=== PATIENT | female | born 1985 | race Caucasian/White ===

== ENCOUNTER 2018-07-24 09:00 | Outpatient (RCR) | payer OTHER, SELFPAY ==
--- NOTE | 2018-07-18 15:01 | PT.OIE ---
Current Diagnoses Carpal tunnel syndrome, unspecified upper limb (07/17/18) Past Medical History (Last Reviewed 07/03/18 @ 12:35 by Danielle Humphries MD) History of pre-eclampsia (Acute) Spontaneous vaginal delivery (Acute) Provider Visit Care Team Role Provider Type Danielle Humphries MD Attending Provider Physician Primary Care Provider Specialty: [facility] Address: [address] [place] [address] Email: [email or web address] Physical Therapy Initial Evaluation PT-OP-A Visit Information Start: 07/17/18 13:42 Freq: Status: Active Protocol: Document 07/17/18 17:00 EA (Rec: 07/18/18 08:09 EA [id number]) Out-Patient Physical Therapy Visit Information Visit Information Visit Type Initial Evaluation Visit Start Time 13:00 Visit Stop Time 13:45 Total Visit Minutes 35 Visit Number 1 Evaluation Information Evaluation Date 07/17/18 PT-OP-B Current Condition Start: 07/17/18 13:42 Freq: Status: Active Protocol: Document 07/17/18 17:00 EA (Rec: 07/18/18 08:09 EA [id number]) Current Condition History of Current Condition Onset Date 3 months ago Current Complaints Pain with abnormal sensation to mid anterior FRA, thumb, index, mid finger History of Current Condition Present condition started 1-2 months ago when patient started breast feeding to her which is now 3 months old; 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 Patient described the symptoms as constant achy pain with tingling/numbness from both mid anterior FRA, wrist, thumb, index, and middle finger. Pt denies history of neck, shoulder, elbow injury. Patient reports symptoms began to diminished slowly after few chiropractor adjustment which her chiropractor believes there is involvement on the neck region, and using OTC wrist brace. Patient denies any loss of hand function or incident that she lost sketch artist to both hands, however states abnormal sensory is constant and more during time. Prior Treatments and Tests Ongoing chiropractor Future Testing and Treatments Planned Ongoing chiropractor Treatment Goals Patient/Caregiver Goals Patient wants to completely eliminate hands sensory alteration and pain Prior Functional Status Baseline Function- ADL's Independent Baseline Function- Mobility Independent Baseline Function- Gait indep Baseline Function- Work/School Indep without limitation prior to maternity leave Current Functional Impairments (Reported) Functional Limitations- ADL's Limited with hand gripped activities and difficulty with infant Functional Limitations- Mobility/Gait Indep Functional Limitations- Work/School Just back to work but with limitation to hand gripping activities PT-OP-C Subjective Start: 07/17/18 13:42 Freq: Status: Active Protocol: Document 07/17/18 17:00 EA (Rec: 07/18/18 08:09 EA [id number]) OP-PT Subjective Patient Comments Patient Reported Progress Improving PT-OP-E Functional Tests Start: 07/17/18 13:42 Freq: Status: Active Protocol: Document 07/17/18 17:00 EA (Rec: 07/18/18 08:09 EA [id number]) Functional Tests Other 1 Name of Test Hand dynamometer Score R =25: Left =22 Comment Normal range: R33.8 ; Left 28. 5 : 25% deficits PT-OP-H Neuro Start: 07/17/18 13:42 Freq: Status: Active Protocol: Document 07/17/18 17:00 EA (Rec: 07/18/18 08:09 EA [id number]) Sensation Evaluation Gross Sensation Gross Sensation Left UE Impaired Right UE Impaired Sensation Description [place] Location Details Left Anterior Lateral Hand Light Touch Impaired Sharp/Dull Impaired Hot/Cold Impaired Proprioception (Position) Intact/Normal Kinesthesia (Movement) Intact/Normal Two-Point Discrimination Impaired Tactile Localization Intact/Normal Stereognosis Intact/Normal Graphesthesia Intact/Normal Right Anterior Lateral Hand Light Touch Impaired Sharp/Dull Impaired Hot/Cold Impaired Proprioception (Position) Intact/Normal Kinesthesia (Movement) Intact/Normal Two-Point Discrimination Impaired Tactile Localization Intact/Normal Stereognosis Intact/Normal Graphesthesia Intact/Normal Deep Tendon Reflex & Clonus Assessment Deep Tendon Reflex Bilateral Bicep Deep Tendon Reflex 2+ Normal Bilateral Brachioradialis Deep Tendon Reflex 2+ Normal PT-OP-J Posture/Palpation/Skin Start: 07/17/18 13:42 Freq: Status: Active Protocol: Document 07/17/18 17:00 EA (Rec: 07/18/18 08:09 EA [id number]) Posture Evaluation Position Standing Evaluation View post/lat Head/C-Spine Posture Forward Head Shoulder Posture (L) Rounded (R) Rounded Palpation Assessment Location Two Palpation Location Both midFRA, both pronators and wrist flexors Palpation Findings Soft Tissue Tightness Tenderness One Palpation Location Both traps, scalenes, SCM, Palpation Findings Soft Tissue Tightness Tenderness PT-OP-K Range of Motion Start: 07/17/18 13:42 Freq: Status: Active Protocol: Document 07/17/18 17:00 EA (Rec: 07/18/18 08:09 EA [id number]) Elbow/Forearm Range of Motion Elbow/Forearm Measured in Degrees Right Passive Elbow/Forearm ROM WFL Yes Left Active Elbow/Forearm ROM WFL Yes Wrist Goniometric Range of Motion Wrist Measured in Degrees Right Wrist ROM WFL Yes Left Wrist ROM WFL Yes PT-OP-L Special Tests Start: 07/17/18 13:42 Freq: Status: Active Protocol: Document 07/17/18 17:00 EA (Rec: 07/18/18 08:12 EA [id number]) Special Tests Other Special Tests Special Tests Phalens and reverse phalen's test: Negative Pronator Teres test: high sensitive PT-OP-M Strength Start: 07/17/18 13:42 Freq: Status: Active Protocol: Document 07/17/18 17:00 EA (Rec: 07/18/18 08:09 EA [id number]) Wrist Strength Wrist Manual Muscle Testing Right Flexion (C7) 4+ Good+ Extension (C6) 5 Normal Ulnar Deviation 4+ Good+ Radial Deviation 5 Normal Left Flexion (C7) 4+ Good+ Extension (C6) 5 Normal Ulnar Deviation 4+ Good+ Radial Deviation 5 Normal Finger/Thumb Strength Finger Manual Muscle Testing Right Thumb Flexion (fingers C8) 4 Good Extension (thumb C8) 5 Normal Adduction 5 Normal Abduction (fingers T1) 5 Normal Left Thumb Flexion (fingers C8) 4 Good Extension (thumb C8) 5 Normal Adduction 5 Normal Abduction (fingers T1) 5 Normal PT-OP-Q Treatments Start: 07/17/18 13:42 Freq: Status: Active Protocol: Document 07/17/18 17:00 EA (Rec: 07/18/18 14:58 EA [id number]) Self-Care/Home Management Treatment Education Patient Education Home Exercise Program Pain Management PT-OP-T Assessment and Plan Start: 07/17/18 13:42 Freq: Status: Active Protocol: Document 07/17/18 17:00 DEE DEE (Rec: 07/18/18 08:09 DEE DEE [id number]) Physical Therapy Assessment Rehab Potential Rehabilitation Potential Excellent Evaluation Complexity Number of Personal Factors/Comorbidities 0 Number of Body Systems Impaired 1-2 Clinical Presentation at Evaluation Stable Impairments Impairments Pain Sensation Soft Tissue Mobility Strength Goals Four Impairment Grade 2 tenderness to both prox ant 1/3 of the FRA Telecasting Technician Goal (LTG) Patient will breastfeed her baby without tenderness or increase symptoms to both anterior FRA. LTG Duration 4 wks Three Impairment Impaired sensory Shelter Goal (LTG) Patient will eliminate abnormal sensory to both distal 3rd FRA, anterior thumb ,index, middle finger to improve quality of life. LTG Duration 4 wks Two Impairment No home exercises in place Shelter Goal (LTG) Patient will perform and comply to HEP safely. LTG Duration 2 wks One Impairment Impaired both hand sketch artist strength Shelter Goal (LTG) Patient will exhibit handgrip strength normal to her age (35 .8 R; 28.5 L) to perform hand tasks without difficulty. LTG Duration 4 wks Assessment Summary Assessment Pleasant 32 y/o F patient referred to PT with current diagnosis of bilateral carpal tunnel syndrome. Today patient exhibited with decreased hand sketch artist strength with constant tingling/numbness to both distal 3rd of anterior FRA, anterior thumb, index, and middle finger. Special tests reveals sensitive to pronator teres syndrome tests;negative to phalen's and reversed phalen's test. Tenderness and tightness noted to both pronators teres. Tests and patient history is consistent to an impression of bilateral entrapment to pronator teres. Due to above bodily dysfunction, patient is limited to handgrip activities . Patient would benefit with skilled PT to reach functional goals and enhance quality of life. Physical Therapy Plan Frequency and Duration Frequency of Treatment 2x/Week Duration of Treatment 8 wks Plan of Care Start Date 07/17/18 Plan of Care End Date 09/11/18 Therapeutic Interventions Therapeutic Interventions Home Exercise Program Manual Therapy Patient/Caregiver Education Self-Care/Home Management Soft Tissue Mobilization Taping Therapeutic Exercises Modalities Cold Pack/Ice Massage Electric Stimulation Hot Packs Paraffin Bath Ultrasound Next Visit Focus/Plan Next Note Type Treatment Note Next Visit Plan HEP
--- NOTE | 2018-07-18 15:03 | PT.OPPOC ---
Current Diagnoses Carpal tunnel syndrome, unspecified upper limb (07/17/18) Provider Visit Care Team Role Provider Type Danielle Humphries MD Attending Provider Physician Primary Care Provider Specialty: [facility] Address: [address] [place] [address], [facility] Email: [email or web address] Plan Of Care PT-OP-T Assessment and Plan Start: 07/17/18 13:42 Freq: Status: Active Protocol: Document 07/17/18 17:00 EA (Rec: 07/18/18 08:09 EA [id number]) Physical Therapy Assessment Rehab Potential Rehabilitation Potential Excellent Evaluation Complexity Number of Personal Factors/Comorbidities 0 Number of Body Systems Impaired 1-2 Clinical Presentation at Evaluation Stable Impairments Impairments Pain Sensation Soft Tissue Mobility Strength Goals Four Impairment Grade 2 tenderness to both prox ant 1/3 of the FRA Senior Care Goal (LTG) Patient will breast feed her baby without tenderness or increase symptoms to both anterior FRA. LTG Duration 4 wks Three Impairment Impaired sensory Senior Care Goal (LTG) Patient will eliminate abnormal sensory to both distal 3rd FRA, anterior thumb ,index, middle finger to improve quality of life. LTG Duration 4 wks Two Impairment No home exercises in place Parcel Contractor Goal (LTG) Patient will perform and comply to HEP safely. LTG Duration 2 wks One Impairment Impaired both hand finishing inspector strength Parcel Contractor Goal (LTG) Patient will exhibit handgrip strength normal to her age (35 .8 R; 28.5 L) to perform hand tasks without difficulty. LTG Duration 4 wks Assessment Summary Assessment Pleasant 32 y/o F patient referred to PT with current diagnosis of bilateral carpal tunnel syndrome. Today patient exhibited with decreased hand finishing inspector strength with constant tingling/numbness to both distal 3rd of anterior FRA, anterior thumb, index, and middle finger. Special tests reveals sensitive to pronator teres syndrome tests;negative to Phalen's and reversed Phalen's test. Tenderness and tightness noted to both pronators teres. Tests and patient history is consistent to an impression of bilateral entrapment to pronator teres. Due to above bodily dysfunction, patient is limited to handgrip activities . Patient would benefit with skilled PT to reach functional goals and enhance quality of life. Physical Therapy Plan Frequency and Duration Frequency of Treatment 2x/Week Duration of Treatment 8 wks Plan of Care Start Date 07/17/18 Plan of Care End Date 09/11/18 Therapeutic Interventions Therapeutic Interventions Home Exercise Program Manual Therapy Patient/Caregiver Education Self-Care/Home Management Soft Tissue Mobilization Taping Therapeutic Exercises Modalities Cold Pack/Ice Massage Electric Stimulation Hot Packs Paraffin Bath Ultrasound Next Visit Focus/Plan Next Note Type Treatment Note Next Visit Plan HEP Plan of Care Dates Plan of Care Start Date 07/17/18 Plan of Care End Date 09/11/18 Please Sign and Return: I have reviewed this Plan of Care and certify that the skilled therapy services above are required to meet the patient?s needs. Physician Signature Date Printed Name and Credentials Clinical Instructor Signature Printed Name and Credentials
--- NOTE | 2018-07-24 09:49 | PT.OTN ---
Current Diagnoses Carpal tunnel syndrome, unspecified upper limb (07/24/18) Physical Therapy Treatment Note PT-OP-A Visit Information Start: 07/17/18 13:42 Freq: Status: Active Protocol: Document 07/24/18 09:12 EA (Rec: 07/24/18 09:47 EA [id number]) Out-Patient Physical Therapy Visit Information Visit Information Visit Type Treatment Note Visit Start Time 09:00 Visit Stop Time 09:55 Total Visit Minutes 55 Visit Number 2 PT-OP-B Current Condition Start: 07/17/18 13:42 Freq: Status: Active Protocol: Document 07/17/18 17:00 EA (Rec: 07/18/18 08:09 EA [id number]) Current Condition History of Current Condition Onset Date 3 months ago Current Complaints Pain with abnormal sensation to midanterior FRA, thumb, index, mid finger History of Current Condition Present condition started 1-2 months ago when patient started breasfeeding to her which is now 3 months old; 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 Patient decribed the symtoms as constant achy pain with tingling/numbness from both mid anterior FRA, wrist, thumb, index, and middle finger. Pt denies history of neck, shoulder, elbow injury. Patient reports symptoms began to diminished slowly after few chiropractor adjusment which her chiropractor believes there is involvement on the neck region, and using OTC wrist brace. Patient denies any loss of hand function or incendent that she lost group underwriter to both hands, however states abnormal sensory is constant and more during time. Prior Treatments and Tests Ongoing chiropractor Future Testing and Treatments Planned Ongoing chiropractor Treatment Goals Patient/Caregiver Goals Patient wants to completely eliminate hands sensory alteration and pain Prior Functional Status Baseline Function- ADL's Independent Baseline Function- Mobility Independent Baseline Function- Gait indep Baseline Function- Work/School Indep without limitation prior to maternity leave Current Functional Impairments (Reported) Functional Limitations- ADL's Limited with hand gripped activities and difficulty with infant Functional Limitations- Mobility/Gait Indep Functional Limitations- Work/School Just back to work but with limitation to hand gripping activities PT-OP-C Subjective Start: 07/17/18 13:42 Freq: Status: Active Protocol: Document 07/24/18 09:12 EA (Rec: 07/24/18 09:47 EA [id number]) OP-PT Subjective Patient Comments Patient Comments Pt reports symptoms is plateau at this time; not getting worst and not getting better,. PT-OP-E Functional Tests Start: 07/17/18 13:42 Freq: Status: Active Protocol: Document 07/17/18 17:00 EA (Rec: 07/18/18 08:09 EA [id number]) Functional Tests Other 1 Name of Test Hand dynamometer Score R =25: Left =22 Comment Normal range: R33.8 ; Left 28. 5 : 25% deficits PT-OP-H Neuro Start: 07/17/18 13:42 Freq: Status: Active Protocol: Document 07/17/18 17:00 EA (Rec: 07/18/18 08:09 EA [id number]) Sensation Evaluation Gross Sensation Gross Sensation Left UE Impaired Right UE Impaired Sensation Description [place] Location Details Left Anterior Lateral Hand Light Touch Impaired Sharp/Dull Impaired Hot/Cold Impaired Proprioception (Position) Intact/Normal Kinesthesia (Movement) Intact/Normal Two-Point Discrimination Impaired Tactile Localization Intact/Normal Stereognosis Intact/Normal Graphesthesia Intact/Normal Right Anterior Lateral Hand Light Touch Impaired Sharp/Dull Impaired Hot/Cold Impaired Proprioception (Position) Intact/Normal Kinesthesia (Movement) Intact/Normal Two-Point Discrimination Impaired Tactile Localization Intact/Normal Stereognosis Intact/Normal Graphesthesia Intact/Normal Deep Tendon Reflex & Clonus Assessment Deep Tendon Reflex Bilateral Bicep Deep Tendon Reflex 2+ Normal Bilateral Brachioradialis Deep Tendon Reflex 2+ Normal PT-OP-J Posture/Palpation/Skin Start: 07/17/18 13:42 Freq: Status: Active Protocol: Document 07/17/18 17:00 EA (Rec: 07/18/18 08:09 EA [id number]) Posture Evaluation Position Standing Evaluation View post/lat Head/C-Spine Posture Forward Head Shoulder Posture (L) Rounded (R) Rounded Palpation Assessment Location Two Palpation Location Both midFRA, both pronators and wrist flexors Palpation Findings Soft Tissue Tightness Tenderness One Palpation Location Both traps, scalenes, SCM, Palpation Findings Soft Tissue Tightness Tenderness PT-OP-K Range of Motion Start: 07/17/18 13:42 Freq: Status: Active Protocol: Document 07/17/18 17:00 EA (Rec: 07/18/18 08:09 EA [id number]) Elbow/Forearm Range of Motion Elbow/Forearm Measured in Degrees Right Passive Elbow/Forearm ROM WFL Yes Left Active Elbow/Forearm ROM WFL Yes Wrist Goniometric Range of Motion Wrist Measured in Degrees Right Wrist ROM WFL Yes Left Wrist ROM WFL Yes PT-OP-L Special Tests Start: 07/17/18 13:42 Freq: Status: Active Protocol: Document 07/17/18 17:00 EA (Rec: 07/18/18 08:12 EA [id number]) Special Tests Other Special Tests Special Tests Phalens and reverse phalen's test: Negative Pronator Teres test: high sensitive PT-OP-M Strength Start: 07/17/18 13:42 Freq: Status: Active Protocol: Document 07/17/18 17:00 EA (Rec: 07/18/18 08:09 EA [id number]) Wrist Strength Wrist Manual Muscle Testing Right Flexion (C7) 4+ Good+ Extension (C6) 5 Normal Ulnar Deviation 4+ Good+ Radial Deviation 5 Normal Left Flexion (C7) 4+ Good+ Extension (C6) 5 Normal Ulnar Deviation 4+ Good+ Radial Deviation 5 Normal Finger/Thumb Strength Finger Manual Muscle Testing Right Thumb Flexion (fingers C8) 4 Good Extension (thumb C8) 5 Normal Adduction 5 Normal Abduction (fingers T1) 5 Normal Left Thumb Flexion (fingers C8) 4 Good Extension (thumb C8) 5 Normal Adduction 5 Normal Abduction (fingers T1) 5 Normal PT-OP-Q Treatments Start: 07/17/18 13:42 Freq: Status: Active Protocol: Document 07/24/18 09:12 EA (Rec: 07/24/18 09:47 EA [id number]) Therapeutic Exercises Sitting Exercises 1 Sitting Exercise Name Both FRA pronators, both wrist flexors, extnsors gentle passive stretch Side bilateral Reps/Minutes x 15 SH x 5 reps Manual Therapy Treatment Soft Tissue Mobilization 1 Body Location Both FRA anterior muscle ( superficial/deep layers) Mobilization Type Myofascial Release Rolling Sustained Pressure Body Position Sitting Comments Begin with effleurage Nerve Glides 1 Nerve both Median and ulnar nerve Body Position Sitting Reps/Duration x 10 reps PT-OP-R Modalities Start: 07/17/18 13:42 Freq: Status: Active Protocol: Document 07/24/18 09:12 EA (Rec: 07/24/18 09:47 EA [id number]) Hot Pack/Cold Pack Treatment Hot Pack Location both FRA Patient Position Sitting Treatment Duration (minutes) 10 Patient Tolerance Good Paraffin Bath Treatment Right Hand Treatment Technique Glove Number Wax Layers (layers) 6 Duration (minutes) 15 Patient Tolerance Good Left Hand Treatment Technique Glove Number Wax Layers (layers) 6 Duration (minutes) 15 Patient Tolerance Good PT-OP-T Assessment and Plan Start: 07/17/18 13:42 Freq: Status: Active Protocol: Document 07/24/18 09:12 DEE DEE (Rec: 07/24/18 09:47 EA [id number]) Physical Therapy Assessment Assessment Summary Assessment Tolerated treatment well. Quick assessment performed to TOS and reveals positive to both arms; numbness increases after nerve glide to ulnar and median nerve. continue with current plan. Physical Therapy Plan Next Visit Focus/Plan Next Note Type Treatment Note Next Visit Plan Provide HEP
--- NOTE | 2018-10-23 13:39 | PT.OPDS ---
Current Diagnoses Carpal tunnel syndrome, unspecified upper limb (07/24/18) Provider Visit Care Team Role Provider Type Danielle Humphries MD Attending Provider Physician Primary Care Provider Specialty: Family Practice Address: [address] [place] [address], [facility] Email: [email or web address] Visit Number Visit Number 2 Discharge Summary PT-OP-B Current Condition Start: 07/17/18 13:42 Freq: Status: Active Protocol: Document 07/17/18 17:00 EA (Rec: 07/18/18 08:09 EA [id number]) Current Condition History of Current Condition Onset Date 3 months ago Current Complaints Pain with abnormal sensation to midanterior FRA, thumb, index, mid finger History of Current Condition Present condition started 1-2 months ago when patient started breasfeeding to her which is now 3 months old; 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 Patient decribed the symtoms as constant achy pain with tingling/numbness from both mid anterior FRA, wrist, thumb, index, and middle finger. Pt denies history of neck, shoulder, elbow injury. Patient reports symptoms began to diminished slowly after few chiropractor adjusment which her chiropractor believes there is involvement on the neck region, and using OTC wrist brace. Patient denies any loss of hand function or incendent that she lost sweeping compound blender to both hands, however states abnormal sensory is constant and more during time. Prior Treatments and Tests Ongoing chiropractor Future Testing and Treatments Planned Ongoing chiropractor Treatment Goals Patient/Caregiver Goals Patient wants to completely eliminate hands sensory alteration and pain Prior Functional Status Baseline Function- ADL's Independent Baseline Function- Mobility Independent Baseline Function- Gait indep Baseline Function- Work/School Indep without limitation prior to maternity leave Current Functional Impairments (Reported) Functional Limitations- ADL's Limited with hand gripped activities and difficulty with infant Functional Limitations- Mobility/Gait Indep Functional Limitations- Work/School Just back to work but with limitation to hand gripping activities PT-OP-C Subjective Start: 07/17/18 13:42 Freq: Status: Active Protocol: Document 10/23/18 13:37 EA (Rec: 02/05/19 13:39 EA [id number]) OP-PT Subjective Patient Comments Patient Comments By phone conversation today, patient reports that her condition is much improve since coming to chiropractor; states she is okay to discharge from PT. Patient Reported Progress Improving PT-OP-E Functional Tests Start: 07/17/18 13:42 Freq: Status: Active Protocol: Document 07/17/18 17:00 EA (Rec: 07/18/18 08:09 EA [id number]) Functional Tests Other 1 Name of Test Hand dynamometer Score R =25: Left =22 Comment Normal range: R33.8 ; Left 28. 5 : 25% deficits PT-OP-H Neuro Start: 07/17/18 13:42 Freq: Status: Active Protocol: Document 07/17/18 17:00 EA (Rec: 07/18/18 08:09 EA [id number]) Sensation Evaluation Gross Sensation Gross Sensation Left UE Impaired Right UE Impaired Sensation Description [place] & [place] Location Details Left Anterior Lateral Hand Light Touch Impaired Sharp/Dull Impaired Hot/Cold Impaired Proprioception (Position) Intact/Normal Kinesthesia (Movement) Intact/Normal Two-Point Discrimination Impaired Tactile Localization Intact/Normal Stereognosis Intact/Normal Graphesthesia Intact/Normal Right Anterior Lateral Hand Light Touch Impaired Sharp/Dull Impaired Hot/Cold Impaired Proprioception (Position) Intact/Normal Kinesthesia (Movement) Intact/Normal Two-Point Discrimination Impaired Tactile Localization Intact/Normal Stereognosis Intact/Normal Graphesthesia Intact/Normal Deep Tendon Reflex & Clonus Assessment Deep Tendon Reflex Bilateral Bicep Deep Tendon Reflex 2+ Normal Bilateral Brachioradialis Deep Tendon Reflex 2+ Normal PT-OP-J Posture/Palpation/Skin Start: 07/17/18 13:42 Freq: Status: Active Protocol: Document 07/17/18 17:00 EA (Rec: 07/18/18 08:09 EA [id number]) Posture Evaluation Position Standing Evaluation View post/lat Head/C-Spine Posture Forward Head Shoulder Posture (L) Rounded (R) Rounded Palpation Assessment Location Two Palpation Location Both midFRA, both pronators and wrist flexors Palpation Findings Soft Tissue Tightness Tenderness One Palpation Location Both traps, scalenes, SCM, Palpation Findings Soft Tissue Tightness Tenderness PT-OP-K Range of Motion Start: 07/17/18 13:42 Freq: Status: Active Protocol: Document 07/17/18 17:00 EA (Rec: 07/18/18 08:09 EA [id number]) Elbow/Forearm Range of Motion Elbow/Forearm Measured in Degrees Right Passive Elbow/Forearm ROM WFL Yes Left Active Elbow/Forearm ROM WFL Yes Wrist Goniometric Range of Motion Wrist Measured in Degrees Right Wrist ROM WFL Yes Left Wrist ROM WFL Yes PT-OP-L Special Tests Start: 07/17/18 13:42 Freq: Status: Active Protocol: Document 07/17/18 17:00 EA (Rec: 07/18/18 08:12 EA [id number]) Special Tests Other Special Tests Special Tests Phalens and reverse phalen's test: Negative Pronator Teres test: high sensitive PT-OP-M Strength Start: 07/17/18 13:42 Freq: Status: Active Protocol: Document 07/17/18 17:00 EA (Rec: 07/18/18 08:09 EA [id number]) Wrist Strength Wrist Manual Muscle Testing Right Flexion (C7) 4+ Good+ Extension (C6) 5 Normal Ulnar Deviation 4+ Good+ Radial Deviation 5 Normal Left Flexion (C7) 4+ Good+ Extension (C6) 5 Normal Ulnar Deviation 4+ Good+ Radial Deviation 5 Normal Finger/Thumb Strength Finger Manual Muscle Testing Right Thumb Flexion (fingers C8) 4 Good Extension (thumb C8) 5 Normal Adduction 5 Normal Abduction (fingers T1) 5 Normal Left Thumb Flexion (fingers C8) 4 Good Extension (thumb C8) 5 Normal Adduction 5 Normal Abduction (fingers T1) 5 Normal PT-OP-T Assessment and Plan Start: 07/17/18 13:42 Freq: Status: Active Protocol: Document 10/23/18 13:37 EA (Rec: 10/23/18 13:39 EA [id number]) Physical Therapy Assessment Assessment Summary Assessment Patient discharge today due to patient request. Physical Therapy Plan Discharge Physical Therapy Discharge Reasons Patient Request
== END 2018-10-23 16:26 ==
LOC: PHYS 09:00
PROVIDERS: PCP Family Medicine; Visit Provider Family Medicine
DX: G56.00 Carpal tunnel syndrome, unspecified upper limb (principal)
CPT/HCPCS: 97010; 97018; 97110; 97140; 97161; 97535

== ENCOUNTER → 2018-08-17 16:00 | Outpatient (CLI) | payer OTHER, SELFPAY | PROVIDERS: PCP Family Medicine | DX: Z23 Encounter for immunization (principal) | CPT/HCPCS: 90471; 90686 ==

== ENCOUNTER 2018-09-30 18:45 | Emergency (ER) | payer OTHER, SELFPAY ==
[2018-09-30 18:48] VITALS: BP 148/91; PULSE 81; RESP 16; TEMP 37.2; O2SAT 100
--- NOTE | 2018-09-30 19:53 | ED.URI ---
HPI - URI/Sore Throat <LEILANI Flanagan - Last Filed: 09/30/18 22:07> General Chief Complaint: Upper Respiratory Symptoms Stated Complaint: sick Time Seen by Provider: 09/30/18 19:25 Source: patient Mode of arrival: ambulatory Limitations: no limitations History of Present Illness HPI Narrative: 33-year-old female here for complaint of nasal congestion and sore throat over the past 5-6 days. She denies any fevers although she has felt some chills. Positive p.o. intake. She denies any cough. She does report that she has had some hoarseness in her voice over the past couple of days. She denies any dyspnea. She denies any other concerns or complaints this timeframe. She is ambulatory in the emergency room. No acute distress. MD Complaint: sore throat Related Data Allergies Allergy/AdvReac Type Severity Reaction Status Date / Time No Known Drug Allergies Allergy Unverified 07/03/18 11:58 Review of Systems <LEILANI Flanagan - Last Filed: 09/30/18 22:07> Constitutional Reports chills, Denies fever(s), Denies lethargy and Denies weakness Eyes Denies change in vision, Denies eye discharge, Denies irritation and Denies loss of vision ENT Ears, Nose, Mouth, and Throat: Reports nasal congestion Comments: Sore throat Cardiovascular Denies chest pain, Denies irregular heart rhythm, Denies lightheadedness, Denies palpitations, Denies dyspnea, Denies dyspnea on exertion and Denies orthopnea Respiratory Denies cough, Denies dyspnea, Denies dyspnea on exertion and Denies wheezing Gastrointestinal Gastrointestinal: Denies abdominal pain, Denies change in bowel habits, Denies diarrhea, Denies nausea and Denies vomiting Genitourinary Denies hematuria, Denies flank pain, Denies urinary incontinence and Denies urinary urgency Musculoskeletal Denies back pain, Denies muscle weakness, Denies numbness and Denies tingling Integumentary/Breasts Denies pruritus, Denies erythema, Denies rash and Denies wounds Neurologic Denies confusion, Denies loss of vision, Denies numbness, Denies tingling and Denies weakness Psychiatric Denies anxiety, Denies confusion, Denies depression, Denies homicidal ideation and Denies suicidal ideation Endocrine Denies palpitations Hematologic/Lymphatic Denies easy bruising Allergic/Immunologic Denies wheezing Exam <LEILANI Flanagan - Last Filed: 09/30/18 22:07> Initial Vital Signs Initial Vital Signs: Vital Signs Temperature 98.9 F 09/30/18 18:48 Pulse Rate 81 09/30/18 18:48 Respiratory Rate 16 09/30/18 18:48 Blood Pressure 148/91 H 09/30/18 18:48 Pulse Oximetry 100 09/30/18 18:48 Const General: cooperative and well developed Nutritional Appearance: well nourished Orientation: alert, awake, oriented x3 and not confused [facility] Mouth: oral mucosae normal, oropharynx normal and moist mucous membranes Eyes Conjunctivae: conjunctivae normal Sclera: sclerae normal Pupils: PERRL EOM: EOM intact bilaterally Chest Chest: normal inspection of the chest Resp Effort & Inspection: normal respiratory effort, able to speak in complete sentences, no respiratory distress and no use of accessory muscles Auscultation: clear to auscultation bilaterally, no rales, no rhonchi and no wheezes Cardio Rate: regular rate Rhythm: regular rhythm Heart Sounds: no click, no gallops, no murmurs and no rubs Pulses: normal peripheral pulses Skin General: no rashes or lesions noted, No jaundice and No petechiae Neuro General: alert, oriented x3, gait normal and no focal motor deficits Speech: speech normal <Juaquin Martinez DO - Last Filed: 09/30/18 22:24> Initial Vital Signs Initial Vital Signs: Vital Signs Temperature 98.9 F 09/30/18 18:48 Pulse Rate 81 09/30/18 18:48 Respiratory Rate 16 09/30/18 18:48 Blood Pressure 148/91 H 09/30/18 18:48 Pulse Oximetry 100 09/30/18 18:48 Course <LEILANI Flanagan - Last Filed: 09/30/18 22:07> Orders Ordered: Discontinued Medications Prednisone (Deltasone 20 Mg Prepack) 1 bottle MISC SEEINSTR ONE Stop: 09/30/18 20:34 Last Admin: 09/30/18 20:53 Dose: 1 bottle Vital Signs - 8 hr 09/30/18 18:48 09/30/18 20:57 Temperature 98.9 F 98.6 F Pulse Rate 81 85 Respiratory Rate 16 16 Blood Pressure 148/91 H 136/87 Pulse Oximetry 100 98 <Juaquin Martinez DO - Last Filed: 09/30/18 22:24> Orders Ordered: Discontinued Medications Prednisone (Deltasone 20 Mg Prepack) 1 bottle MISC SEEINSTR ONE Stop: 09/30/18 20:34 Last Admin: 09/30/18 20:53 Dose: 1 bottle Vital Signs - 8 hr 09/30/18 18:48 09/30/18 20:57 Temperature 98.9 F 98.6 F Pulse Rate 81 85 Respiratory Rate 16 16 Blood Pressure 148/91 H 136/87 Pulse Oximetry 100 98 MDM - URI/Sore Throat <LEILANI Flanagan - Last Filed: 09/30/18 22:07> Lab Data Point of Care Testing Rapid Strep A Negative MDM Narrative Medical decision making narrative: Rapid strep test was obtained was negative. Signs and symptoms presents as viral upper respiratory infection. She is given a few days of prednisone 20 mg to help with any inflammation to the throat plenty of fluids. [id number] Tylenol as needed for any discomfort. Follow up with primary care provider. Return emergency room for any worsening symptoms. <Juaquin Martinez DO - Last Filed: 09/30/18 22:24> Lab Data Point of Care Testing Rapid Strep A Negative Discharge Plan Departure Patient Disposition: Home Clinical Impression: Upper respiratory infection Discharge Date/Time: 09/30/18 20:58 Interventions: ED Discharge Assessment Last Done: 09/30/18 20:57 Instructions: DI for Viral Upper Respiratory Infection -- Adult Activity Restrictions/Additional Instructions: Strep test was obtained was negative. Signs symptoms presents as viral upper respiratory infection. Plenty of fluids and rest. Use [id number] Tylenol as needed for any discomfort. Short course of prednisone is given to help with inflammation to the throat area. Follow up with her primary care provider later this week. For any worsening symptoms return to the emergency room. Referrals: Danielle Humphries MD [Primary Care Provider] - <Juaquin Martinez DO - Last Filed: 09/30/18 22:24> Cosign ED Attending Cosignature Attestation: I was available for consultation during this patient's emergency department encounter
[2018-09-30] MEDS: predniSONE 20 MG PREPACK 1 BOTTLE MISC (20:53)
[2018-09-30 20:57] VITALS: BP 136/87; PULSE 85; RESP 16; TEMP 37; O2SAT 98
== END 2018-09-30 20:58 | disposition home or self-care (01) ==
PROVIDERS: Emergency Provider Nurse Practitioner Family; PCP Family Medicine
DX: J06.9 Acute upper respiratory infection, unspecified (principal)
CPT/HCPCS: 87880; 99282; 99283

== ENCOUNTER → 2018-10-01 16:10 | Outpatient (CLI) | payer OTHER, SELFPAY ==
[2018-10-01 16:39] LABS: Influenza A and B by PCR Rapid Negative (Negative)
== END ==
PROVIDERS: PCP Family Medicine; Visit Provider Registered Nurse
DX: J06.9 Acute upper respiratory infection, unspecified (principal)
CPT/HCPCS: 87400

== ENCOUNTER → 2019-06-21 17:46 | Outpatient (CLI) | payer OTHER, SELFPAY | PROVIDERS: PCP Family Medicine | DX: Z23 Encounter for immunization (principal) | CPT/HCPCS: 90471; 90686 ==

== ENCOUNTER → 2020-04-01 08:48 | Outpatient (CLI) | payer OTHER, SELFPAY ==
[2020-04-02 14:15] LABS: COVID19 Sendout Not Detected (Not Detect)
== END ==
PROVIDERS: PCP Family Medicine; Visit Provider Physician Assistant
DX: J02.9 Acute pharyngitis, unspecified (principal); R05 Cough
CPT/HCPCS: 87635

== ENCOUNTER → 2020-06-07 09:01 | Outpatient (CLI) | payer OTHER, SELFPAY ==
[2020-06-08 14:21] LABS: COVID19 Sendout Not Detected (Not Detect)
== END ==
PROVIDERS: PCP Family Medicine; Visit Provider Physician Assistant
DX: J39.2 Other diseases of pharynx (principal); R05 Cough; Z20.828 Contact with and (suspected) exposure to other viral communicable diseases
CPT/HCPCS: 87635

== ENCOUNTER → 2020-06-25 03:18 | Outpatient (CLI) | payer OTHER, SELFPAY | PROVIDERS: PCP Family Medicine; Referring Provider Internal Medicine; Visit Provider Internal Medicine | DX: Z23 Encounter for immunization (principal) | CPT/HCPCS: 90471; 90686 ==

== ENCOUNTER → 2020-07-23 08:31 | Outpatient (CLI) | payer OTHER, SELFPAY ==
[2020-07-24 07:17] LABS: COVID19 Sendout Not Detected (Not Detect)
== END ==
PROVIDERS: PCP Family Medicine; Visit Provider Physician Assistant
DX: Z11.59 Encounter for screening for other viral diseases (principal); R50.9 Fever, unspecified; J02.9 Acute pharyngitis, unspecified
CPT/HCPCS: 87070; 87077; 87147; 87635

== ENCOUNTER → 2020-08-26 10:24 | Outpatient (CLI) | payer OTHER, SELFPAY ==
[2020-08-26 11:22] LABS: COVID19 -Nasal RAPID POSITIVE (Negative)
== END ==
PROVIDERS: PCP Family Medicine; Visit Provider Physician Assistant
DX: U07.1 COVID-19 (principal)
CPT/HCPCS: 87635

== ENCOUNTER → 2020-09-25 11:00 | Outpatient (CLI) | payer OTHER, SELFPAY ==
[2020-09-25] MEDS: COVID-19 VACC(MODERNA-1)/PF 100 MCG/0.5 ML VIAL IM (11:06)
== END ==
PROVIDERS: PCP Family Medicine; Visit Provider Internal Medicine
DX: Z23 Encounter for immunization (principal)
CPT/HCPCS: 0011A; 91301

== ENCOUNTER → 2020-10-23 10:59 | Outpatient (CLI) | payer OTHER, SELFPAY ==
[2020-10-23] MEDS: COVID-19 VACC #2, MRNA(MOD) 100 MCG/0.5 ML VIAL IM (11:02)
== END ==
PROVIDERS: PCP Family Medicine; Visit Provider Internal Medicine
DX: Z23 Encounter for immunization (principal)
CPT/HCPCS: 0012A; 91301

== ENCOUNTER → 2021-02-06 08:13 | Outpatient (CLI) | payer OTHER, SELFPAY ==
[2021-02-06 09:26] LABS: Add Manual Diff / Slide Review NO; Basophils Absolute Auto 0 /uL (0-100); Basophils Percent Auto 0.6 % (0-2); Eosinophils Absolute Auto 100 /uL (0-450); Hematocrit 39.8 % (36-46); Hemoglobin 13.6 g/dL (12.0-16.0); Lymphocytes Absolute Auto 1300 /uL (1100-4500); Lymphocytes Percent Auto 22.5 % (25-40); Mean Corpuscular Hemoglobin 29.3 PG (26-34); Mean Corpuscular Volume 85.9 fL (80-100); Monocytes Absolute Auto 500 /uL (0-900); Monocytes Percent Auto 8.3 % (3-14); Neutrophils Absolute Auto 4000 /uL (1500-7000); Neutrophils Percent Auto 66.6 % (50-75); Platelet Count 257 X10^3/uL (150-400); Red Blood Cell Count 4.63 X10^6/uL (4.0-5.2); Red Cell Distribution Width 13.8 % (11.6-14.8)
[2021-02-06 09:33] LABS: Alanine Aminotransferase 14 IU/L (<35); Albumin 4.5 g/dL (3.5-5.0); Albumin Globulin Ratio 1.4 (1.0-2.8); Alkaline Phosphatase 59 U/L (38-126); Aspartate Aminotransferase 27 IU/L (14-36); BUN Creatinine Ratio 15.4 (6-22); Bilirubin Total 0.5 mg/dL (0.2-1.3); Blood Urea Nitrogen 10 mg/dL (7-17); Calcium 9.4 mg/dL (8.4-10.2); Carbon Dioxide 27 mmol/L (22-32); Chloride 102 mmol/L (98-107); Cholesterol 192 mg/dL (140-199); Estimated Glomerular Filt Rate > 60.0 mL/min (>60); Globulin 3.3 g/dL (1.7-4.1); Glucose 104 mg/dL (70-100); HDL Cholesterol 63 mg/dL (40-60); HEMOLYSIS < 15 (0-50); LDL Cholesterol Calculated 101 mg/dL (<100); Potassium 4.2 mmol/L (3.4-5.1); Sodium 137 mmol/L (137-145); Total Protein 7.8 g/dL (6.3-8.2); Triglycerides 141 mg/dL (35-150)
[2021-02-06 09:50] LABS: Vitamin D 25 Hydroxy (D3) 27.5 ng/mL (30.0-100.0)
[2021-02-06 10:03] LABS: TSH w/ Reflex to FT4 1.31 uIU/mL (0.47-4.68)
[2021-02-06 10:34] LABS: Vitamin B12 275 pg/mL (239-931)
== END ==
PROVIDERS: PCP Family Medicine; Referring Provider Family Medicine; Visit Provider Family Medicine
DX: R53.83 Other fatigue (principal); R63.5 Abnormal weight gain; G89.29 Other chronic pain
CPT/HCPCS: 36415; 80053; 80061; 82306; 82607; 84443; 85025

== ENCOUNTER → 2021-07-01 19:35 | Outpatient (CLI) | payer OTHER, SELFPAY | PROVIDERS: PCP Family Medicine; Referring Provider Internal Medicine; Visit Provider Internal Medicine | DX: Z23 Encounter for immunization (principal) | CPT/HCPCS: 90471; 90686 ==

== ENCOUNTER → 2021-11-17 08:04 | Outpatient (CLI) | payer OTHER, SELFPAY ==
[2021-11-17 08:38] LABS: Creatinine Urine Random 19.3 mg/dL
[2021-11-17 08:43] LABS: Microalbumin Urine Random < 0.6 mg/dL (0-1.6)
[2021-11-17 09:26] LABS: Alanine Aminotransferase 15 IU/L (<35); Albumin Globulin Ratio 1.4 (1.0-2.8); Alkaline Phosphatase 52 U/L (38-126); Aspartate Aminotransferase 27 IU/L (14-36); BUN Creatinine Ratio 18.6 (6-22); Bilirubin Total 0.5 mg/dL (0.2-1.3); Blood Urea Nitrogen 11 mg/dL (7-17); Calcium 9.4 mg/dL (8.4-10.2); Carbon Dioxide 29 mmol/L (22-32); Chloride 102 mmol/L (98-107); Cholesterol 240 mg/dL (140-199); Estimated Glomerular Filt Rate > 60.0 mL/min (>60); Globulin 3.5 g/dL (1.7-4.1); Glucose 106 mg/dL (70-100); HDL Cholesterol 76 mg/dL (40-60); HEMOLYSIS < 15 (0-50); LDL Cholesterol Calculated 139 mg/dL (<100); Potassium 4.5 mmol/L (3.4-5.1); Sodium 138 mmol/L (137-145); Total Protein 8.5 g/dL (6.3-8.2); Triglycerides 127 mg/dL (35-150)
== END ==
PROVIDERS: PCP Family Medicine; Referring Provider Family Medicine; Visit Provider Family Medicine
DX: I10 Essential (primary) hypertension (principal)
CPT/HCPCS: 36415; 80053; 80061; 82043; 82570

== ENCOUNTER → 2022-05-11 16:02 | Outpatient (CLI) | payer OTHER, SELFPAY ==
[2022-05-11 16:20] LABS: Add Manual Diff / Slide Review NO; Basophils Absolute Auto 100 /uL (0-100); Basophils Percent Auto 0.7 % (0-2); Eosinophils Absolute Auto 100 /uL (0-450); Hematocrit 40.4 % (36-46); Hemoglobin 14.1 g/dL (12.0-16.0); Lymphocytes Absolute Auto 1700 /uL (1100-4500); Lymphocytes Percent Auto 16.2 % (25-40); Mean Corpuscular HGB Conc 34.9 % (30-36); Mean Corpuscular Hemoglobin 30.1 PG (26-34); Mean Corpuscular Volume 86.4 fL (80-100); Monocytes Absolute Auto 600 /uL (0-900); Monocytes Percent Auto 5.5 % (3-14); Neutrophils Absolute Auto 7900 /uL (1500-7000); Neutrophils Percent Auto 76.6 % (50-75); Platelet Count 266 X10^3/uL (150-400); Red Blood Cell Count 4.67 X10^6/uL (4.0-5.2); Red Cell Distribution Width 13.9 % (11.6-14.8); White Blood Cell Count 10.3 X10^3/uL (4.5-11.0)
[2022-05-11 17:11] LABS: Alanine Aminotransferase 19 IU/L (<35); Albumin 4.9 g/dL (3.5-5.0); Albumin Globulin Ratio 1.4 (1.0-2.8); Alkaline Phosphatase 66 U/L (38-126); Aspartate Aminotransferase 28 IU/L (14-36); BUN Creatinine Ratio 21.1 (6-22); Bilirubin Total 0.5 mg/dL (0.2-1.3); Blood Urea Nitrogen 15 mg/dL (7-17); Calcium 9.2 mg/dL (8.4-10.2); Carbon Dioxide 26 mmol/L (22-32); Chloride 100 mmol/L (98-107); Estimated Glomerular Filt Rate > 60 mL/min (>60); Globulin 3.6 g/dL (1.7-4.1); Glucose 114 mg/dL (70-100); Potassium 4.4 mmol/L (3.4-5.1); Sodium 136 mmol/L (137-145); Total Protein 8.5 g/dL (6.3-8.2)
[2022-05-11 17:24] LABS: HEMOLYSIS < 15 (0-50); Troponin I < 0.012 ng/mL (0.01-0.034)
[2022-05-11 17:41] LABS: TSH w/ Reflex to FT4 0.77 uIU/mL (0.47-4.68)
== END ==
PROVIDERS: PCP Family Medicine; Referring Provider Family Medicine; Visit Provider Family Medicine
DX: R07.89 Other chest pain (principal)
CPT/HCPCS: 36415; 80053; 84443; 84484; 85025

== ENCOUNTER → 2022-07-16 14:09 | Outpatient (CLI) | payer OTHER, SELFPAY | PROVIDERS: PCP Family Medicine; Referring Provider Internal Medicine; Visit Provider Internal Medicine | DX: Z23 Encounter for immunization (principal) | CPT/HCPCS: 90471; 90686 ==

== ENCOUNTER → 2023-07-01 15:25 | Outpatient (CLI) | payer OTHER, SELFPAY | PROVIDERS: PCP Family Medicine; Referring Provider Family Medicine; Visit Provider Family Medicine | DX: Z23 Encounter for immunization (principal) | CPT/HCPCS: 90471; 90686 ==

== ENCOUNTER → 2024-01-22 09:27 | Outpatient (CLI) | payer OTHER, SELFPAY ==
--- NOTE | 2024-01-22 09:28 | DI.US.S_ITS ---
LIMITED ULTRASOUND OF LEFT BREAST: 01/22/2024 CLINICAL: Focal left breast pain. Comparison is made to exam dated: 01/22/2024 mammogram - [facility]. Real-time ultrasound of the left breast 9-10 o'clock region was performed. Bowen scale images of the real-time examination were reviewed. No significant abnormalities were seen sonographically in the left breast. Specifically, no finding to explain the patient's pain. IMPRESSION: NEGATIVE There is no sonographic correlate to the patient's pain and no evidence of malignancy. 4 year screening mammogram recommended. Findings and recommendations were conveyed to the patient at time of exam. This exam was interpreted at Station ID: [id number]. Electronically Signed By: Мария montes/:01/22/2024 10:40:51 letter sent: Normal Exam Ultrasound BI-RADS: 1 Negative
--- NOTE | 2024-01-22 09:28 | DI.US.S_ITS ---
LIMITED ULTRASOUND OF RIGHT BREAST: 01/22/2024 CLINICAL: Focal right breast pain. Comparison is made to exam dated: 01/22/2024 mammogram - . Real-time ultrasound of the right breast 2 o'clock region was performed. Bowen scale images of the real-time examination were reviewed. No significant abnormalities were seen sonographically in the right breast. Specifically, no finding to explain the patient's pain. IMPRESSION: NEGATIVE There is no sonographic correlate to the patient's pain and no evidence of malignancy. A 4 year screening mammogram is recommended. Findings and recommendations were conveyed to the patient at time of exam. This exam was interpreted at Station ID: [id number]. Electronically Signed By: Мария montes/:01/22/2024 10:40:26 letter sent: Normal Exam Ultrasound BI-RADS: 1 Negative
--- NOTE | 2024-01-22 09:28 | DI.MG.S_ITS ---
BILATERAL DIGITAL DIAGNOSTIC MAMMOGRAM 3D/2D: 01/22/2024 CLINICAL: Bilateral breast pain. Baseline exam. No prior exams were available for comparison. There are scattered areas of fibroglandular density in both breasts (category b / 25%-50% glandular tissue). No significant masses, calcifications, or other findings are seen in either breast. Specifically, no finding to explain the patient's pain. Mammograms are otherwise normal. IMPRESSION: INCOMPLETE: NEEDS ADDITIONAL IMAGING EVALUATION Bilateral mammograms are normal. There is no abnormality seen in the right breast to correspond with the pain at 1 o'clock. There is no abnormality seen in the left breast to correspond with the pain at 10 o'clock. Ultrasound is recommended for full evaluation of these areas. This was performed immediately following this exam. Based on the Tyrer Cuzick model (a risk assessment model) the patient's lifetime risk is 12.2% and her 10 year risk is 1.0%. According to the ACR, ACS, and NCCN guidelines, an annual breast MRI exam along with mammogram is recommended if the patient's lifetime risk is 20% or greater. This exam was interpreted at Station ID: [id number]. NOTE: For mammograms, a report in lay terms will be sent to the patient. Approximately 15% of breast malignancies will not be visualized mammographically. In the management of a palpable breast mass, a negative mammogram must not discourage biopsy of a clinically suspicious lesion. Electronically Signed By: Мария montes/:01/22/2024 10:11:38 ACR BI-RADS Category 0: Incomplete [id number]
== END ==
LOC: MAMMO 09:27
PROVIDERS: PCP Family Medicine; Referring Provider Family Medicine; Visit Provider Family Medicine
DX: Z12.31 Encounter for screening mammogram for malignant neoplasm of breast (principal); N64.4 Mastodynia; R92.323 Mammographic fibroglandular density, bilateral breasts
CPT/HCPCS: 76642; 77066; G0279

== ENCOUNTER → 2024-01-26 11:55 | Outpatient (CLI) | payer OTHER, SELFPAY ==
[2024-01-26 13:48] LABS: Vitamin B12 273 pg/mL (239-931)
== END ==
PROVIDERS: PCP Family Medicine; Referring Provider Family Medicine; Visit Provider Family Medicine
DX: R20.0 Anesthesia of skin (principal)
CPT/HCPCS: 36415; 82607

== ENCOUNTER → 2024-08-02 | Outpatient (CLI) | payer OTHER, SELFPAY | PROVIDERS: PCP Family Medicine; Referring Provider Internal Medicine; Visit Provider Internal Medicine | DX: Z23 Encounter for immunization (principal) | CPT/HCPCS: 90471; 90656 ==

== ENCOUNTER → 2024-09-23 11:15 | Outpatient (CLI) | payer OTHER, SELFPAY | PROVIDERS: PCP Family Medicine; Visit Provider Family Medicine | DX: N89.8 Other specified noninflammatory disorders of vagina (principal) | CPT/HCPCS: 87210 ==